=== PATIENT | male | born 1980 | race Caucasian/White ===

== ENCOUNTER 2020-03-01 11:46 | Outpatient (CLI) | payer OTHER | END 2020-03-01 11:50 | disposition home or self-care (01) | LOC: LAB 11:46 | DX: Z03.818 Encounter for observation for suspected exposure to other biological agents ruled out (principal) ==

== ENCOUNTER 2022-02-27 09:23 | Outpatient (CLI) | payer OTHER | END 2022-02-27 09:24 | disposition home or self-care (01) | LOC: LAB 09:23 | PROVIDERS: ATTEND Obstetrics & Gynecology | DX: Z20.828 Contact with and (suspected) exposure to other viral communicable diseases (principal); Z20.818 Contact with and (suspected) exposure to other bacterial communicable diseases ==

== ENCOUNTER 2022-07-07 15:36 | Outpatient (CLI) | payer OTHER | END 2022-07-07 15:37 | disposition home or self-care (01) | LOC: PPH VACUNA 15:36 | DX: Z23 Encounter for immunization (principal) ==